=== PATIENT | male | born 2000 | race Hispanic/Latino ===

== ENCOUNTER 2024-09-02 05:28 | Emergency (ER) | payer OTHER ==
[~2024-09-02] VITALS: Ht 172.7 cm; Wt 108.9 kg
--- NOTE | 2024-09-02 05:49 | ERN ---
ED Note History of Present Illness Stated Complaint: SEIZURE Chief Complaint: Seizure Time Seen by MD: 05:31 Dictation: This is a 23-year-old male who was sent from the long term center for evaluation of seizures. According to the EMS report patient had initial seizure around 12 midnight. That lasted for a few minutes and he regained his consciousness was fully awake alert and back to normal. They decided to get medical evaluation in the morning as the patient was stable at the time. Patient had an a 2nd seizure around 4:30 a.m. and fell off the bunker after the seizure. He bit his tongue and he covered very quickly. He was alert awake answering all the questions appropriately during my evaluation. He stated that he took his Keppra today as usual. There was nothing unusual during his day or evening. No fevers chills or rigors. He denied any obvious trauma and I could not get any history of patient hitting the head when he fell of the bunker. Temperature 98.1 pulse 100 respirations 20 blood pressure 127/71 with a pulse oximetry of 98% on room air Patient has a known history of seizure since age 17. He also gives a history of other brothers with seizures. Allergies: Coded Allergies: No Known Drug Allergies (Unverified Allergy, Unknown, 09/02/24) Past Medical History Past Medical History: Seizure Surgical History: None Social History: Negative RN Note Reviewed/Agreed w/PFSH: Yes Review of System Dictation Constitutional: Negative for fever,chills, and weight loss Eyes: Negative for injury, pain,redness, and discharge ENT: Negative for injury,pain or swelling Cardiovascular: Negative for chest pain, palpitations, and edema Respiratory: Negative for shortness of breath, cough, and wheezing, Abdomen/GI: Negative for abdominal pain, nausea, vomiting, diarrhea, and constipation Back: Negative for injury and pain : Negative for injury, bleeding and discharge MS/Extremity: Negative for injury and deformity Skin: Negative for rash, and discoloration Neuro: Positive for headache, seizure negative forweakness, numbness, tingling, Psych: Negative for suicide ideation, homicidal ideation, and hallucinations Initial Vital Sign VS Vital Signs Date Time Temp Pulse Resp B/P (MAP) Pulse Ox O2 Delivery O2 Flow Rate FiO2 09/02/24 05:30 98.1 100 20 127/71 95 Room Air 0 09/02/24 05:52 23 Physical Exam Dictation General: awake, alert, NAD very obese male who was actively vomitings during my evaluation Head/Face: Normocephalic, atraumatic Eyes: PERRL, EOMI, vision at baseline ENT: oral cavity clear, TMs clear, no signs of infection Neck: Trachea midline, supple, no nuchal rigidity Cardiovascular: RRR, normal S1/S2, No MRGs, no JVD Respiratory: CTAB, no respiratory distress, No rales or wheezes Abdomen: Soft, non-tender, non-distended, normal bowel sounds, no guarding or rebound. Skin: Warm, dry, normal turgor, no rash MS/Extremity: Pulses equal, no cyanosis, neurovascular intact, FROM Neuro: COAx4, GCS 15, strength 5/5, CN 2-12 intact, normal cerebellar exam, normal gait, Psych: Normal behavior, mood, and affect normal Extremities-trace edema without any palpable cords, Homans sign is negative Results (Laboratory/Radiology) Laboratory/Radiology Laboratory Tests Test 09/02/24 06:11 09/02/24 06:18 White Blood Count 9.8 K/uL (4.8-10.8) Red Blood Count 5.46 MIL/uL (4.50-6.20) Hemoglobin 15.2 g/dL (14.0-18.0) Hematocrit 44.4 % (42-54) Mean Corpuscular Volume 81.3 fL (80-100) Mean Corpuscular Hemoglobin 27.8 pg (27.0-33.0) Mean Corpuscular Hemoglobin Concent 34.2 g/dL (32.0-36.0) Red Cell Distribution Width 12.7 % (11.0-15.5) Platelet Count 202 K/uL (130-400) Mean Platelet Volume 10.1 fL (7.5-10.5) Immature Granulocyte % (Auto) 0.4 % (0-1) Neutrophils (%) (Auto) 78.8 % (40.0-77.0) H Lymphocytes (%) (Auto) 11.8 % (21.0-51.0) L Monocytes (%) (Auto) 7.9 % (3.0-13.0) Eosinophils (%) (Auto) 0.9 % (0.0-8.0) Basophils (%) (Auto) 0.2 % (0.0-5.0) Neutrophils # (Auto) 7.7 K/uL (1.8-7.7) Lymphocytes # (Auto) 1.2 K/uL (1.0-4.8) Monocytes # (Auto) 0.8 K/uL (0.1-1.0) Eosinophils # (Auto) 0.09 K/uL (0.00-0.70) Basophils # (Auto) 0.02 K/uL (0.00-0.20) Absolute Immature Granulocyte (auto 0.04 K/uL (0-1) Nucleated Red Blood Cells 0.0 % (0.0-0.19) Sodium Level 140 mmol/L (136-145) Potassium Level 4.0 mmol/L (3.5-5.1) Chloride Level 105 mmol/L (101-111) Carbon Dioxide Level 28 mmol/L (21-32) Blood Urea Nitrogen 12 mg/dL (7-18) Creatinine 0.7 mg/dL (0.5-1.3) Glomerular Filtration Rate Calc 134 mL/min (>90) Random Glucose 120 mg/dL (70-105) H Total Calcium 9.2 mg/dL (8.5-10.1) Total Creatine Kinase 168 U/L (21-232) Salicylates Level < 2.8 mg/dL (2.8-20.0) L Serum Alcohol < 3 mg/dL (0-10) Urine Color YELLOW (YELLOW) Urine Appearance CLEAR (CLEAR) Urine pH 5.5 (5.0-8.0) Urine Specific Hailey 1.027 (1.001-1.031) Urine Protein NEGATIVE mg/dL (NEGATIVE) Urine Glucose (UA) NEGATIVE mg/dL (NEGATIVE) Urine Ketones 5 mg/dL (NEGATIVE) H Urine Occult Blood NEGATIVE (NEGATIVE) Urine Nitrate NEGATIVE (NEGATIVE) Urine Bilirubin NEGATIVE mg/dL (NEGATIVE) Urine Urobilinogen 0.2 mg/dL (0.2-1.0) Urine Leukocyte Esterase NEGATIVE Marybel/uL Urine RBC 0-1 /HPF (0-1) Urine WBC 0-1 /HPF (0-1) Urine Bacteria None /HPF (None Seen) Urine Opiates Screen NEGATIVE (NEGATIVE) Urine Barbiturates Screen NEGATIVE (NEGATIVE) Urine Phencyclidine Screen NEGATIVE (NEGATIVE) Urine Amphetamines Screen NEGATIVE (NEGATIVE) Urine Benzodiazepines Screen NEGATIVE (NEGATIVE) Urine Cocaine Screen NEGATIVE (NEGATIVE) Urine Marijuana (THC) Screen NEGATIVE (NEGATIVE) Labs Reviewed?: Yes ED Course ED Course Orders Procedure Category Date Status Time Cbc With Differential LAB 09/02/24 Complete 05:33 Ct Head/Brain W/O CT 09/02/24 Resulted Contrast 05:33 0.9%Nacl 1000ml (Ns PHA 09/02/24 Complete 1000ml) 06:00 Lorazepam 2 Mg PHA 09/02/24 Complete (Ativan) 06:00 Basic Metabolic Panel LAB 09/02/24 Complete 05:33 Drug Screen Urine LAB 09/02/24 Complete 05:33 Alcohol, Blood LAB 09/02/24 Complete 05:33 Salicylate LAB 09/02/24 Complete 05:33 Creatine Kinase, Total LAB 09/02/24 Complete 05:33 Urinalysis Profile LAB 09/02/24 Complete 05:33 Ondansetron 4mg Inj PHA 09/02/24 Complete (Zofran 4mg Inj) 06:00 Levetiracetam 500 PHA 09/02/24 Complete Mg/5 M[address] V (Keppra 5 06:00 Current Medications Medications (Trade) Dose Ordered Sig/Kellen Route PRN Reason Start Time Stop Time Status Last Admin Dose Admin Levetiracetam 1000 mg/Sodium Chloride 100 ml @ 400 mls/hr Q8H6 IV 09/02/24 06:00 09/02/24 09:01 DC 09/02/24 05:57 Lorazepam (AtiVAN) 2 mg ONCE ONCE IVP 09/02/24 06:00 09/02/24 06:01 DC 09/02/24 05:57 Ondansetron HCl (zoFRAN 4MG INJ) 4 mg ONCE ONCE IVP 09/02/24 06:00 09/02/24 06:01 DC 09/02/24 05:57 Sodium Chloride 1,000 ml @ 125 mls/hr ONCE ONCE IV 09/02/24 06:00 09/02/24 09:01 DC 09/02/24 05:57 Vital Signs Date Time Temp Pulse Resp B/P (MAP) Pulse Ox O2 Delivery O2 Flow Rate FiO2 09/02/24 09:00 98.1 80 17 108/54 100 Room Air* 0 21 09/02/24 07:32 98.1 83 17 105/46 100 Room Air* 0 21 09/02/24 06:43 95 18 120/63 98 Room Air* 0 21 09/02/24 05:52 92 18 115/64 99 Room Air* 0 21 09/02/24 05:30 98.1 100 20 127/71 95 Room Air 0 We will perform diagnostic labs, advanced imaging and administer medications according to the patient's complaint. Once the results are available, will review and personally interpreted the labs to rule out any acute life-threat ening emergency the trach require immediate intervention and treatment. I will then re-evaluate the patient after treatment and diagnostic exams have return to determine whether the patient requires any further testing, can safely be discharged home or need further admission to hospital for additional treatment and evaluation. 6:40 a.m. labs reviewed CBC BNP 7 with a normal limits. Urinalysis is unremarkable. Urine drug screen is negative. Salicylate levels center alcohol levels are pending; loading with Keppra requested CT scan of the head completed radiology report is pending at this time Medical Decision Making MDM MDM: Differential diagnosis: Recurrent seizures possibly related to inadequate levels of anticonvulsants, noncompliance, dehydration, infection, substance abuse Rationale: Tests considered and ordered secondary to shared decision making include: Previous outside records reviewed: Old ER visits. Risk of complication and/or morbidity or mortality of patient management: None Medications-Per medication reconciliation Need for hospitalization: Patient does not meet criteria for hospitalization. Need for emergency major/minor surgery: No There are no social concerns with this patient. Prescription drug management Prescriptions will include symptomatic care Patient's prior external medical records from other ER visits were reviewed by me as indicated. Prior testing and results from previous visits were reviewed. Prior tests were taken into account with medical decision making and resource utilization, independent historian/historians were used to obtain complete medical history. I independently interpreted the test that were performed, results were reviewed by me and considered findings on radiology if ordered. Medical management and examination interpretation discussions were had by me with other qualified healthcare professionals as indicated for the patient's care. Patient signed out to me pending CT read. CT unremarkable. Patient discharged. [place] [id number] [place] [id number] IMAGING REPORT Signed PATIENT: KRAIG HINES MR#: [id number] : 2000 SEX: M AGE: 23 LOCATION: [facility] ORDER 4 STATUS: REG ER REPORT#: [id number] SERVICE REASON: seizure ORDERING PHYSICIAN: BRYAN LUIS MD PROCEDURE: HEAD WO - CT HEAD/BRAIN W/O CONTRAST Exam: NONCONTRAST CT BRAIN REASON: seizure. COMPARISON: None. TECHNIQUE: Images are obtained from vertex to the skull base. The exam was performed without IV contrast. FINDINGS: There is normal appearing brain parenchyma. There are no focal mass lesions. There is is no evidence of intracranial hemorrhage or acute stroke. Ventricles and sulci appear normal. Posterior fossa and brainstem structures are unremarkable. There is patchy opacification of ethmoid air cells. Remaining paranasal sinuses appear clear. IMPRESSION: 1. Normal intracranial findings. 2. Patchy opacification of ethmoid air cells. CT was performed with one or more following dose reduction techniques: automated exposure control, adjustment of the mA and kv according to patient's size, or use of a iterative reconstruction technique. DICTATED BY: BOBO GODINEZ MD DATE: 09/02/24818 ELECTRONICALLY SIGNED BY: BOBO GODINEZ MD DATE: 09/02/24823 Problem List Problem List: (1) Seizures (2) History of seizure disorder DX & DISP Disposition: Discharge Departure Impression: Primary Impression: Seizures Additional Impression: History of seizure disorder Condition: Stable Additional Instructions: Patient and the caregiver have been informed of all the diagnostic tests and the imaging conducted during the today's visit to the emergency room and has verbalized understanding of the results I have personally reviewed and interpreted all diagnostic exams performed here in the ER today as well as the vital signs documented by the nursing staff. The patient is now being discharged to [facility] and should follow up with the primary care physician or the specialist as directed by the ER staff. Referrals: SELF,REFERRAL (PCP) BRYAN LUIS MD Sep 02, 2024 05:49 DEEPALI RICHARDSON MD Sep 02, 2024 09:20
--- NOTE | 2024-09-02 05:50 | NUR ---
PATIENT GIVEN URINAL BUT STATES CAN NOT PROVIDE A SAMPLE RIGHT NOW.
--- NOTE | 2024-09-02 05:51 | NUR ---
SEIZURE PADS AND PRECAUTIONS IN PLACE.
[2024-09-02] MEDS: LORazepam 2 MG/ML 1 ML VIAL IVP ONE (05:57)
[2024-09-02] MEDS: ondanSETRON 4MG INJ IVP ONE (05:57)
[2024-09-02] MEDS: 0.9%NACL 1000ML 1,000 ML IV ONE (05:57)
[2024-09-02] MEDS: leveTIRACEtam 500 MG/5 ML SD V 1,000 MG in 0.9%NACL 100ML 100 ML IV SCH (05:57)
[2024-09-02 06:23] LABS: BASOPHILS # (AUTO) 0.02 K/uL (0.00-0.20); BASOPHILS % (AUTO) 0.2 % (0.0-5.0); EOSINOPHILS # (AUTO) 0.09 K/uL (0.00-0.70); EOSINOPHILS % (AUTO) 0.9 % (0.0-8.0); HEMATOCRIT 44.4 % (42-54); IMMATURE GRANULOCYTE ABSOLUTE 0.04 K/uL (0-1); LYMPHOCYTES # (AUTO) 1.2 K/uL (1.0-4.8); LYMPHOCYTES % (AUTO) 11.8 % (21.0-51.0); MEAN CORPUSCULAR HEMOGLOBIN 27.8 pg (27.0-33.0); MEAN CORPUSCULAR HGB CONC 34.2 g/dL (32.0-36.0); MEAN CORPUSCULAR VOLUME 81.3 fL (80-100); MONOCYTES # (AUTO) 0.8 K/uL (0.1-1.0); MONOCYTES % (AUTO) 7.9 % (3.0-13.0); NEUTROPHILS # (AUTO) 7.7 K/uL (1.8-7.7); NEUTROPHILS % (AUTO) 78.8 % (40.0-77.0); PLATELET COUNT (AUTO) 202 K/uL (130-400); RED BLOOD CELL COUNT(AUTO) 5.46 MIL/uL (4.50-6.20); RED CELL DISTRIBUTION WIDTH 12.7 % (11.0-15.5); WHITE BLOOD COUNT (AUTO) 9.8 K/uL (4.8-10.8)
[2024-09-02 06:27] LABS: APPEARANCE,URINE CLEAR (CLEAR); BILIRUBIN,URINE NEGATIVE (NEGATIVE); COLOR,URINE YELLOW (YELLOW); GLUCOSE, URINE (UA) NEGATIVE (NEGATIVE); KETONES,URINE 5 mg/dL (NEGATIVE); LEUKOCYTE ESTERASE ,URINE NEGATIVE Leu/uL (NEGATIVE); NITRATE,URINE NEGATIVE (NEGATIVE); OCCULT BLOOD,URINE NEGATIVE (NEGATIVE); PH,URINE 5.5 (5.0-8.0); PROTEIN,URINE NEGATIVE (NEGATIVE); UROBILINOGEN,URINE 0.2 mg/dL (0.2-1.0)
[2024-09-02 06:33] LABS: ADD UA MICROSCOPIC YES; MUCUS,URINE RARE LPF (None Seen); RBC,URINE 0-1 /HPF (0-1); WBC,URINE 0-1 /HPF (0-1)
[2024-09-02 06:34] LABS: AMPHET/METH SCREEN,URINE NEGATIVE (NEGATIVE); BARBITURATE SCREEN, URINE NEGATIVE (NEGATIVE); BENZODIAZEPINES SCREEN,URINE NEGATIVE (NEGATIVE); CANNABINOID SCREEN,URINE NEGATIVE (NEGATIVE); COCAINE SCREEN,URINE NEGATIVE (NEGATIVE); OPIATE SCREEN,URINE NEGATIVE (NEGATIVE); PHENCYCLIDINE SCREEN,URINE NEGATIVE (NEGATIVE)
[2024-09-02 06:40] LABS: CARBON DIOXIDE 28 mmol/L (21-32); CHLORIDE 105 mmol/L (101-111); CREATININE 0.7 mg/dL (0.5-1.3); GLOMERULAR FILTR. RATE CALC 134 mL/min (>90); GLUCOSE,RANDOM 120 mg/dL (70-105); SODIUM SERUM 140 mmol/L (136-145); UREA NITROGEN, BLOOD 12 mg/dL (7-18)
[2024-09-02 06:45] LABS: ALCOHOL, BLOOD < 3 mg/dL (0-10); CREATINE KINASE, TOTAL 168 U/L (21-232)
[2024-09-02 06:47] LABS: SALICYLATE < 2.8 mg/dL (2.8-20.0)
--- NOTE | 2024-09-02 08:24 | HMCIMG ---
Exam: NONCONTRAST CT BRAIN REASON: seizure. COMPARISON: None. TECHNIQUE: Images are obtained from vertex to the skull base. The exam was performed without IV contrast. FINDINGS: There is normal appearing brain parenchyma. There are no focal mass lesions. There is is no evidence of intracranial hemorrhage or acute stroke. Ventricles and sulci appear normal. Posterior fossa and brainstem structures are unremarkable. There is patchy opacification of ethmoid air cells. Remaining paranasal sinuses appear clear. IMPRESSION: 1. Normal intracranial findings. 2. Patchy opacification of ethmoid air cells. CT was performed with one or more following dose reduction techniques: automated exposure control, adjustment of the mA and kv according to patient's size, or use of a iterative reconstruction technique.
[2024-09-02 09:00] VITALS: BP 108/54; PULSE 80; RESP 17; TEMP 98; O2SAT 100
== END 2024-09-02 09:01 | disposition home or self-care (01) ==
LOC: EEVIPCON 05:28 → EDH 05:28
DX: R56.9 Unspecified convulsions (principal)
CPT/HCPCS: 99285; 96365; 70450; 96375; 82550; 80048; 80305; 85025; 36415; 81001; G0481; J1953; J7030; J2405; J2060